=== PATIENT | male | born 1965 | race Caucasian/White ===

== ENCOUNTER 2016-06-22 19:42 | Emergency (ER) | payer MEDICARE, BC ==
[2016-06-22 20:04] VITALS: BP 144/65
[2016-06-22] MEDS ORDERED: HYDROmorphone 1 MG/ML Syringe IM ONE (21:16)
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
== END 2016-06-22 21:53 | disposition home or self-care (01) ==
LOC: JP.ED 19:42
DX: M46.1 Sacroiliitis, not elsewhere classified (principal); L98.9 Disorder of the skin and subcutaneous tissue, unspecified; I25.2 Old myocardial infarction; Z95.1 Presence of aortocoronary bypass graft; Z90.49 Acquired absence of other specified parts of digestive tract; Z88.1 Allergy status to other antibiotic agents
CPT/HCPCS: 96372; 99283; J1170; 99284

== ENCOUNTER 2016-08-27 01:26 | Emergency (ER) | payer MEDICARE, BC ==
[2016-08-27 03:16] VITALS: BP 130/72
[2016-08-27] MEDS ORDERED: HYDROmorphone 1 MG/ML Syringe IM ONE (03:44)
[2016-08-27] MEDS ORDERED: Sodium Chloride 0.9% 1,000 ML IV SCH (05:15)
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
[2016-08-27] MEDS ORDERED: Ondansetron 4 MG/2 ML SDV ONE (08:25)
[2016-08-27] MEDS ORDERED: Ondansetron 4 MG/2 ML SDV IVPUSH ONE (08:31)
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
== END 2016-08-27 10:02 ==
LOC: JP.ED 01:26
DX: L03.115 Cellulitis of right lower limb (principal); L97.519 Non-pressure chronic ulcer of other part of right foot with unspecified severity; E78.00 Pure hypercholesterolemia, unspecified; J45.909 Unspecified asthma, uncomplicated; F42.9 Obsessive-compulsive disorder, unspecified; E11.9 Type 2 diabetes mellitus without complications; E66.9 Obesity, unspecified; Z90.49 Acquired absence of other specified parts of digestive tract; Z79.899 Other long term (current) drug therapy; Z95.5 Presence of coronary angioplasty implant and graft
CPT/HCPCS: 36415; 70450; 71250; 72125; 73700; 74176; 80053; 82150; 82550; 82962; 83605; 83690; 85025; 85651; 86140; 87040; 87070; 87077; 87186; 87205; 96361; 96365; 96366; 96372; 96375; 99284; J1170; J2405; J3370; J7040; J7050

== ENCOUNTER 2017-05-14 16:30 | Emergency (ER) | payer MEDICARE, BC ==
[2017-05-14] MEDS ORDERED: HYDROmorphone 1 MG/ML Syringe IVPUSH ONE (18:12)
[2017-05-14] MEDS ORDERED: Sodium Chloride 0.9% 10 ML Syringe FLUSH PRN (18:12)
[2017-05-14] MEDS ORDERED: Ondansetron 4 MG/2 ML SDV IVPUSH ONE (18:12)
[2017-05-14] MEDS ORDERED: Sodium Chloride 0.9% 1,000 ML IV SCH (18:15)
[2017-05-14] MEDS ORDERED: Bacitracin Oint 1 GM U/D Packet ONE (19:02)
[2017-05-14 20:02] VITALS: BP 100/39
[2017-05-14] MEDS ORDERED: HYDROmorphone 1 MG/ML Syringe IM ONE (20:44)
--- NOTE | 2017-05-14 20:45 | EDM.PDOC ---
<Robert Xie - Last Filed: 05/14/17 20:49> ED HPI GENERAL MEDICAL PROBLEM - General Stated Complaint: FELL LAST WEEK Time Seen by Provider: 05/14/17 18:20 - Related Data Allergies Allergy/AdvReac Type Severity Reaction Status Date / Time levofloxacin [From Levaquin] Allergy Cannot Verified 08/27/16 01:35 Remember Home Meds: Home Meds Pravastatin Sodium 80 mg PO DAILY 04/02/16 [History] oxyCODONE HCl/Acetaminophen [oxyCODONE-Acetaminophen 5-325] 1 tab PO Q4H PRN [History] Gabapentin [Neurontin] 600 mg PO BID 08/27/16 [History] Past Medical History Cardiovascular History: Reports: High Cholesterol, Stents Respiratory History: Reports: Asthma Gastrointestinal History: Reports: Chronic Diarrhea Genitourinary History: Reports: Acute Renal Failure, Dialysis Musculoskeletal History: Reports: Arthritis Neurological History: Reports: Brain Injury Psychiatric History: Reports: Depression Endocrine/Metabolic History: Reports: Diabetes, Type II, Obesity/BMI 30+ Hematologic History: Reports: Anemia, Blood Transfusion(s) Dermatologic History: Reports: Cellulitis, Other (See Below) Other Dermatologic History: right ankle - Infectious Disease History Infectious Disease History: Reports: Chicken Pox - Past Surgical History HEENT Surgical History: Reports: Cataract Surgery, Detached Retina, Eye Surgery Cardiovascular Surgical History: Reports: Coronary Artery Stent GI Surgical History: Reports: Cholecystectomy Social & Family History - Tobacco Use Smoking Status *Q: Never Smoker Second Hand Smoke Exposure: No - Caffeine Use Caffeine Use: Reports: Coffee - Recreational Drug Use Recreational Drug Use: No Course - Vital Signs Last Recorded V/S: Last Vital Signs Temp 36.6 C 05/14/17 19:13 Pulse 76 05/14/17 19:59 Resp 20 05/14/17 19:59 BP 100/39 L 05/14/17 19:59 Pulse Ox 89 L 05/14/17 19:13 - Orders/Labs/Meds Labs: Laboratory Tests 05/14/17 05/14/17 05/14/17 Range/Units 17:27 17:27 17:27 WBC 8.4 (4.5-11.0) K/uL RBC 3.00 L (4.30-5.90) M/uL Hgb 9.8 L D (12.0-15.0) g/dL Hct 30.8 L (40.0-54.0) % MCV 103 H (80-98) fL MCH 33 H (27-31) pg MCHC 32 (32-36) % Plt Count 201 (150-400) K/uL Neut % (Auto) 76 H (36-66) % Lymph % (Auto) 15 L (24-44) % [place] % (Auto) 7 H (2-6) % Eos % (Auto) 2 (2-4) % Baso % (Auto) 0 (0-1) % Sodium 138 L (140-148) mmol/L Potassium 5.5 H (3.6-5.2) mmol/L Chloride 94 L (100-108) mmol/L Carbon Dioxide 29 (21-32) mmol/L Anion Gap 20.5 H (5.0-14.0) mmol/L BUN 74 H D (7-18) mg/dL Creatinine 8.6 H* (0.8-1.3) mg/dL Est Cr Clr Drug Dosing TNP Estimated GFR (MDRD) 7 L (>60) Glucose 168 H (74-106) mg/dL Calcium 8.0 L (8.5-10.1) mg/dL Total Bilirubin 0.5 (0.2-1.0) mg/dL AST 10 L (15-37) U/L ALT 14 (12-78) U/L Alkaline Phosphatase 75 (46-116) U/L Ammonia 4 L (11-32) mmol/L Total Protein 7.8 (6.4-8.2) g/dL Albumin 3.7 (3.4-5.0) g/dL Globulin 4.1 H (2.3-3.5) g/dL Albumin/Globulin Ratio 0.9 L (1.2-2.2) Meds: Medications Discontinued Medications Generic Name Dose Route Start Last Admin Trade Name Freq PRN Reason Stop Dose Admin Bacitracin Confirm 05/14/17 19:02 Bacitracin Oint 1 Gm Administered 05/14/17 19:03 Dose 1 dose .ROUTE .STK-MED ONE Bacitracin 1 gm 05/15/17 21:41 05/14/17 21:43 Bacitracin Oint TOP 05/15/17 21:42 1 dose ONETIME ONE Administration Hydromorphone HCl 1 mg 03/04/18 18:12 05/14/17 18:47 Dilaudid IVPUSH 05/14/17 18:13 1 mg ONETIME ONE Administration Hydromorphone HCl 1 mg 05/14/17 20:44 05/14/17 21:27 Dilaudid IM 05/14/17 20:45 1 mg ONETIME ONE Administration Sodium Chloride 1,000 mls @ 150 mls/hr 05/14/17 18:15 05/14/17 18:49 Normal Saline IV 150 mls/hr ASDIRECTED ROWENA Administration Ondansetron HCl 4 mg 05/14/17 18:12 05/14/17 18:47 Zofran IVPUSH 05/14/17 18:13 4 mg ONETIME ONE Administration Sodium Chloride 10 ml 05/14/17 18:12 05/14/17 18:54 Saline Flush FLUSH 10 ml ASDIRECTED PRN Administration Keep Vein Open - Re-Assessments/Exams Free Text/Narrative Re-Assessment/Exam: 05/14/17 20:45 This patient was turned over to me by Dr. Lee at about 1830. He fell on the ice about a week ago. He's complaining of pain in the left shoulder in the area of the left deltoid. Dr. Lee had done x-rays of his left shoulder and pelvis. There's a small chip off the humeral head which might actually be chronic. He was medicated for pain and then slept. He also has a laceration to the left manzo after he hit this on the bed frame a couple of days ago. Also this is a dialysis patient and he has dialysis in [place] tomorrow. X-rays were reviewed with Dr. Lee. I examined the patient he does have some point tenderness over the deltoid looks like there may have been a little bit of bone a avulsed there is nothing that needs to be treated other than put in a sling. I examined the laceration to his manzo area laceration is proximally 4 cm long and approximately 8 mm deep. There was a lot of yellow matter in that this was flushed out and it looked much better. The seventh had some laxity trace and ointment and a some packing placed. Patient and the lady with him were instructed on how to take care of this basically is just needs to be washed with soap and water preferably flushed under running water and I will have him follow-up in clinic on Monday. He said his Percocet was not helping he 's taking 2 of the 5/325 tablets every 4 hours. I gave him another 1 mg of Dilaudid this time IM. He'll be dismissed home 05/14/17 20:49 Departure - Departure Time of Disposition: 20:52 Disposition: Home, Self-Care 01 Condition: Fair Clinical Impression: Injury of left shoulder, Laceration of lower leg, left - Discharge Information Instructions: Shoulder Pain, Laceration Care, Adult Referrals: Nash Spangler Sr, MD [Primary Care Provider] - Forms: ED Department Discharge Additional Instructions: Wash the wound to your leg once or twice daily with soap and water. Flush it well with warm running water. Use some antibiotic ointment and cover with a dressing. Follow-up in the wound clinic on Monday. Continue your pain medications as directed. If that's not adequate then see your regular doctor. Wear the arm sling for comfort. Follow-up for dialysis tomorrow as planned <Andreina Lee - Last Filed: 06/14/17 08:23> ED HPI GENERAL MEDICAL PROBLEM - General Source of Information: Reports: Patient, EMS History Limitations: Reports: No Limitations - History of Present Illness INITIAL COMMENTS - FREE TEXT/NARRATIVE: pt fell about 1 week ago. He has pain in his left shoulder and this is in the area of the deltoid. He has a lacration to his rt manzo and this has not been cared for and he has pus like drainage coming from the area. Onset: Other ( The incident happened 1 week ago. ) Duration: Day(s): Location: Reports: Upper Extremity, Left, Lower Extremity, Right Associated Symptoms: Reports: No Other Symptoms, Other (pt seemes to have some pain in the pelvis area and he has not been very active. ) ED ROS GENERAL - Review of Systems Review Of Systems: See Below Constitutional: Reports: Decreased Appetite HEENT: Reports: No Symptoms Respiratory: Reports: No Symptoms Cardiovascular: Reports: No Symptoms Endocrine: Reports: No Symptoms GI/Abdominal: Reports: No Symptoms : Reports: No Symptoms Musculoskeletal: Reports: Other ( Pain in his left shoulder and left hip area. He has a laceration on the rt lower leg which ui draining pus. ) Skin: Reports: No Symptoms ED EXAM, GENERAL - Physical Exam Exam: See Below Free Text/Narrative:: pt arrived with pain in the left shoulder and left hip area. He fell about 1 week ago. Exam Limited By: No Limitations General Appearance: Moderate Distress Ears: Normal TMs Nose: Normal Inspection Throat/Mouth: Normal Inspection Head: Atraumatic Neck: Normal Inspection Respiratory/Chest: No Respiratory Distress Cardiovascular: Regular Rate, Rhythm GI/Abdominal: Soft, Non-Tender (Male) Exam: Deferred Rectal (Males) Exam: Deferred Back Exam: Other (Pt is having pain in the left hip area and this extends into the groin. ) Extremities: Other (pt hs pain in the left shoulder in the deltoid area. He has pain over the left hip. He has a laceration on the rt lower leg which has not been cared for and is looking like it has drainage. ) Neurological: Alert, Oriented, Normal Cognition Psychiatric: Normal Affect
--- NOTE | 2017-05-15 10:56 | CR ---
SHOULDER LEFT History: Shoulder pain Findings: No fracture or dislocation is identified. There is some spurring at the AC joint. The there is also periarticular spurring at the glenoid. There is calcification near the bicipital groove and greater tubercle. Impression: Osteophytic change in the before meals and glenohumeral joint Calcific biceps and rotator cuff tendinitis
--- NOTE | 2017-05-15 11:04 | CR ---
LUMBAR SPINE: 3 view History: Left back and buttock pain Findings: There are rudimentary ribs at the lowest rib-bearing vertebrae. Vertebral body heights are maintained. There is some mild diffuse spondylosis most notable at L4-5. There is some osteoarthritic change in the lower lumbar facets. There are atherosclerotic changes in the aorta. There are some calcifications in the right upper quadrant as well as surgical clips. One or some of t hese calcifications could be urinary. Impression: Mild diffuse spondylosis Osteoarthritic changes in the lower lumbar facets Right upper quadrant calcifications. A renal calcification cannot be excluded.
--- NOTE | 2017-05-15 11:07 | CR ---
PELVIS one view History: Left buttock pain Findings: There is no fracture or osseous lesion. Hip joint spaces are mildly narrowed bilaterally. S I joints appear intact. There is calcification of the vas deferens. There are calcifications in both inguinal regions. Some of these are vascular and others appear to be calcified lymph nodes. Impression: Mild osteoarthritic changes in both hips. No fracture or osseous lesion
[2017-05-15] MEDS ORDERED: Bacitracin Oint 28.35 GM Tube TOP ONE (21:41)
== END 2017-05-14 21:43 | disposition home or self-care (01) ==
LOC: JP.ED 16:30
DX: S81.812A Laceration without foreign body, left lower leg, initial encounter (principal); S49.92XA Unspecified injury of left shoulder and upper arm, initial encounter; Z88.1 Allergy status to other antibiotic agents; E11.9 Type 2 diabetes mellitus without complications; Z79.899 Other long term (current) drug therapy; W00.0XXA Fall on same level due to ice and snow, initial encounter
CPT/HCPCS: 36415; 72110; 72170; 73030; 80053; 82140; 85025; 96372; 96374; 96375; 99284; J1170; J2405; J7040; J7050

== ENCOUNTER 2017-07-16 16:21 | Emergency (ER) | payer MEDICARE, BC ==
[2017-07-16] MEDS ORDERED: Aspirin 81 MG Tab.Chew PO ONE (16:39)
[2017-07-16] MEDS ORDERED: Nitroglycerin 0.4 MG Tab.SL SL PRN (16:40)
[2017-07-16] MEDS ORDERED: Alum Hydrox/Mag Hydrox/Simeth 15 ML, Lidocaine 2% 15 ML PO ONE ×2 (16:43)
--- NOTE | 2017-07-16 16:43 | EDM.PDOC ---
ED HPI GENERAL MEDICAL PROBLEM - General Chief Complaint: Skin Complaint Stated Complaint: CHEST PAIN Time Seen by Provider: 07/16/17 16:40 Source of Information: Reports: Patient History Limitations: Reports: No Limitations - History of Present Illness INITIAL COMMENTS - FREE TEXT/NARRATIVE: pt arrived complaining of severe pain in the left chest epigastric area and int the rt leg. He has an ulcer on the left foot. He was mildly diaphoretic. Onset: Gradual, Other (Pt was at [facility] 2-3 weeks ago, ) Duration: Hour(s): Location: Reports: Chest, Abdomen, Lower Extremity, Right Associated Symptoms: Reports: Chest Pain, Syncope - Related Data Allergies Allergy/AdvReac Type Severity Reaction Status Date / Time levofloxacin [From Levaquin] Allergy Cannot Verified 07/16/17 16:28 Remember Home Meds: Home Meds Pravastatin Sodium 80 mg PO DAILY 04/02/16 [History] oxyCODONE HCl/Acetaminophen [oxyCODONE-Acetaminophen 5-325] 1 tab PO Q4H PRN [History] Gabapentin [Neurontin] 600 mg PO DAILY 08/27/16 [History] Aspirin [Low Dose Aspirin EC] 81 mg PO DAILY 07/16/17 [History] Clindamycin HCl [Cleocin] 300 mg PO TID 07/16/17 [History] Past Medical History Cardiovascular History: Reports: High Cholesterol, [place], Stents Respiratory History: Reports: Asthma, Sleep Apnea Other Respiratory History: cpap but doesn't use it Gastrointestinal History: Reports: Chronic Diarrhea Genitourinary History: Reports: Acute Renal Failure, Dialysis Musculoskeletal History: Reports: Arthritis Neurological History: Reports: Brain Injury Psychiatric History: Reports: Depression Endocrine/Metabolic History: Reports: Diabetes, Type II, Obesity/BMI 30+ Hematologic History: Reports: Anemia, Blood Transfusion(s) Dermatologic History: Reports: Cellulitis, Other (See Below) Other Dermatologic History: right ankle - Infectious Disease History Infectious Disease History: Reports: Chicken Pox - Past Surgical History HEENT Surgical History: Reports: Cataract Surgery, Detached Retina, Eye Surgery Cardiovascular Surgical History: Reports: Coronary Artery Stent GI Surgical History: Reports: Cholecystectomy Social & Family History - Tobacco Use Smoking Status *Q: Never Smoker Second Hand Smoke Exposure: No - Caffeine Use Caffeine Use: Reports: Coffee - Recreational Drug Use Recreational Drug Use: No ED ROS GENERAL - Review of Systems Review Of Systems: See Below HEENT: Reports: No Symptoms Respiratory: Reports: No Symptoms Cardiovascular: Reports: No Symptoms Endocrine: Reports: No Symptoms GI/Abdominal: Reports: Abdominal Pain (pt had pain in the epigastric area. ), Other ( Pt had epigastric pain. ) : Reports: No Symptoms Musculoskeletal: Reports: No Symptoms Skin: Reports: No Symptoms Neurological: Reports: No Symptoms ED EXAM, SKIN/RASH Exam: See Below Text/Narrative:: pt arrived moaning in pain. He stated that he had pain in the left chest and epigastric area. . He had pain in the left leg. He was very uncomfortable on arrival. He is normally on dialysis. He also states that his rt leg is more swollen then usual and is more painful. Exam Limited By: Other (pt is not a great historian) General Appearance: Alert, Severe Distress, Other (pain in th chest and pain the rt leg. ) Ears: Normal TMs Nose: Normal Inspection Throat/Mouth: Normal Inspection Head: Atraumatic Neck: Normal Inspection Respiratory/Chest: No Respiratory Distress Cardiovascular: Regular Rate, Rhythm GI/Abdominal: Soft, Non-Tender Rectal (Males) Exam: Deferred Extremities: Other ( rt leg is markedly swollen and tender. He had a us on the leg which did not reveal any clots. ) Neurological: Alert, Oriented, Normal Cognition Psychiatric: Anxious Course - Vital Signs Last Recorded V/S: Last Vital Signs Temp 37.4 C 07/16/17 18:09 Pulse 90 07/16/17 18:09 Resp 16 07/16/17 18:09 BP 114/55 L 07/16/17 18:09 Pulse Ox 98 07/16/17 18:09 - Orders/Labs/Meds Labs: Laboratory Tests 07/16/17 07/16/17 07/16/17 Range/Units 16:20 16:20 16:39 WBC 7.6 (4.5-11.0) K/uL RBC 2.65 L (4.30-5.90) M/uL Hgb 8.7 L (12.0-15.0) g/dL Hct 27.4 L (40.0-54.0) % MCV 103 H (80-98) fL MCH 33 H (27-31) pg MCHC 32 (32-36) % Plt Count 159 (150-400) K/uL Neut % (Auto) 80 H (36-66) % Lymph % (Auto) 10 L (24-44) % [place] % (Auto) 8 H (2-6) % Eos % (Auto) 1 L (2-4) % Baso % (Auto) 0 (0-1) % Sodium 133 L (140-148) mmol/L Potassium 4.9 (3.6-5.2) mmol/L Chloride 92 L (100-108) mmol/L Carbon Dioxide 29 (21-32) mmol/L Anion Gap 11.7 (5.0-14.0) mmol/L BUN 55 H (7-18) mg/dL Creatinine 8.4 H* (0.8-1.3) mg/dL Est Cr Clr Drug Dosing 12.16 mL/min Estimated GFR (MDRD) 7 L (>60) Glucose 167 H (74-106) mg/dL Calcium 7.8 L (8.5-10.1) mg/dL Total Bilirubin 0.7 (0.2-1.0) mg/dL AST 16 (15-37) U/L ALT 14 (12-78) U/L Alkaline Phosphatase 59 (46-116) U/L Troponin I 3.709 H* (0.000-0.056) ng/mL Total Protein 7.0 (6.4-8.2) g/dL Albumin 2.9 L (3.4-5.0) g/dL Globulin 4.1 H (2.3-3.5) g/dL Albumin/Globulin Ratio 0.7 L (1.2-2.2) Meds: Medications Discontinued Medications Generic Name Dose Route Start Last Admin Trade Name Freq PRN Reason Stop Dose Admin Aspirin 324 mg 07/16/17 16:39 07/16/17 16:45 Aspirin PO 07/16/17 16:40 324 mg ONETIME ONE Administration Al Hydroxide/Mg Hydroxide 15 0 ml 07/16/17 16:43 07/16/17 16:51 ml/ Lidocaine HCl 15 ml PO 07/16/17 16:44 15 ml ONETIME ONE Administration Hydromorphone HCl 0.5 mg 07/16/17 16:59 07/16/17 17:09 Dilaudid IVPUSH 07/16/17 17:00 0.5 mg ONETIME ONE Administration Hydromorphone HCl 1 mg 07/16/17 19:08 07/16/17 19:13 Dilaudid IVPUSH 07/16/17 19:09 1 mg ONETIME ONE Administration Nitroglycerin 0.4 mg 07/16/17 16:40 07/16/17 16:46 Nitrostat SL 0.4 mg Q5M PRN Administration Chest Pain - Re-Assessments/Exams Free Text/Narrative Re-Assessment/Exam: 07/16/17 19:00 pt was found to have a trop of 3.7. In [place] he had a trop of .44 and .56 when he was sent there 3 weeks ago, His creatnine is 8.8. He had a normal wbc. His ekg did not reveal acute changes. He had recently been at [facility] in [place]. Arrangements were made to go to [facility] for evaluation of the trop tonight. He refused to go and wanted to go to [facility]. He refused to take a ambulance to [facility] He stated they were going to drive there. He was advised he would have to sign a AMA slip. 07/16/17 19:09 pt was given a GI cocktail and he got good relief. He had asa and nitro. The nitro did not give good relief. He was given a total of dilaudid 1.5 mg. 07/21/17 08:14 pt continued to have evre pain in the rt leg. The leg is more swollen and is very tight feeling. Departure - Departure Time of Disposition: 19:04 Disposition: Home, Self-Care 01 Clinical Impression: Elevated troponin, Atypical chest pain, Left leg swelling, Renal failure - Discharge Information Instructions: Nonspecific Chest Pain, [id number] Referrals: Nash Spangler Sr, MD [Primary Care Provider] - Forms: ED Department Discharge Care Plan Goals: Pt left AMA with a trop of 3.7. He refused to take a ambulance. He refusd to go to [place] where arrangements had been made. He stated he was going by car to [facility]. records were given to the pt but he did sign a ama form since he would only go by car.
[2017-07-16] MEDS ORDERED: HYDROmorphone 0.5 MG/0.5 ML Syringe IVPUSH ONE (16:59)
[2017-07-16 18:10] VITALS: BP 114/55
[2017-07-16] MEDS ORDERED: HYDROmorphone 1 MG/ML Syringe IVPUSH ONE (19:08)
--- NOTE | 2017-07-17 09:38 | CR ---
Chest 1V Frontal INDICATION: chest pain COMPARISON: None FINDINGS: AP portable chest. Cardiomegaly and mild interstitial pulmonary edema. No pleural effusions. Findings consistent with CH F.
== END 2017-07-16 19:46 | disposition home or self-care (01) ==
LOC: JP.ED 16:21
DX: R07.89 Other chest pain (principal); R79.89 Other specified abnormal findings of blood chemistry; R22.42 Localized swelling, mass and lump, left lower limb; N19 Unspecified kidney failure; I25.2 Old myocardial infarction; E11.9 Type 2 diabetes mellitus without complications; E66.9 Obesity, unspecified; Z88.1 Allergy status to other antibiotic agents; Z79.82 Long term (current) use of aspirin
CPT/HCPCS: 36415; 71045; 80053; 84484; 85025; 93005; 93971; 96374; 96376; 99285; A9270; J1170

== ENCOUNTER 2017-08-08 12:00 | Day surgery (SDC) | payer MEDICARE, BC ==
[~2017-08-08 12:00] MED LIST: Lactated Ringers 1,000 ML IV SCH; Midazolam 1 MG/ML 2 ML SDV ONE; Propofol 200 MG/20 ML SDV ONE; fentaNYL 100 MCG/2 ML SDV ONE
[2017-08-08 12:50] VITALS: BP 123/62
== END 2017-08-08 13:10 | disposition home or self-care (01) ==
LOC: JP.SDS 12:00
PROVIDERS: ATTEND Internal Medicine
DX: K92.2 Gastrointestinal hemorrhage, unspecified (principal); Z53.9 Procedure and treatment not carried out, unspecified reason
CPT/HCPCS: J2250; J2704; J3010